=== PATIENT | male | born 1995 | race Two or more races ===

== ENCOUNTER 2020-09-08 15:54 | Emergency (ER) | payer OTHER ==
[~2020-09-08] VITALS: Ht 185.4 cm; Wt 90.7 kg
[2020-09-08] MEDS ORDERED: METFORMIN HCL1000 M2 (16:05)
[2020-09-08] MEDS ORDERED: VASOTEC20 M1 (16:05)
== END 2020-09-08 20:38 | disposition home or self-care (01) ==
LOC: ER 15:54
DX: E11.649 Type 2 diabetes mellitus with hypoglycemia without coma (principal); R55 Syncope and collapse; Z11.52 Encounter for screening for COVID-19

== ENCOUNTER 2021-05-22 14:42 | Outpatient (CLI) | payer OTHER ==
[~2021-05-22 14:42] MED LIST: METFORMIN HCL1000 M2; VASOTEC20 M1
== END 2021-05-22 16:00 | disposition home or self-care (01) ==
LOC: ASH CLINIC 14:42
DX: U07.1 COVID-19 (principal); Z23 Encounter for immunization